=== PATIENT | female | born 1985 | race Caucasian/White ===

== ENCOUNTER 2017-08-01 22:38 | Emergency (ER) | payer OTHER, MEDICAID ==
[~2017-08-01 22:38] MED LIST: DOXYCYCLINE 10100 M1 PO; MACROBID 100 M100 M3 PO; ZOFRAN 4 MG ORAL4 MG PO
== END 2017-08-01 23:23 | disposition left against medical advice (07) ==
LOC: M.ERS 22:38
DX: Z53.21 Procedure and treatment not carried out due to patient leaving prior to being seen by health care provider (principal)